=== PATIENT | male | born 1975 | race Caucasian/White ===

== ENCOUNTER → 2017-02-03 | Day surgery (SDC) | payer MEDICARE, MEDICAID ==
[~2017-02-03] VITALS: Ht 165.1 cm; Wt 124.3 kg
[~2017-02-03] MED LIST: ALDA25TA PO; AMIT50TA PO; GLIP5TAB8 PO; LIDOCAINE 2% INJ 100 MG/5 ML SDV (FOR ANES.) As Ordered ONE; LIDOCAINE 2% W/ EPINEPHRINE 1.7 ML DENTAL INJ As Ordered ONE; LIPI10TA PO; LOPR1TAB6 PO; LR 1,000 ML IV SCH; METF1000 PO; MIDAZOLAM INJ 2 MG/2 ML VIAL (J2250) As Ordered ONE; OMEP40CA2 PO; ONDANSETRON 4MG/2ML VIAL (J2405) As Ordered ONE; ONDANSETRON 4MG/2ML VIAL (J2405) IV PRN; PROA1AER INH; PROPOFOL 200 MG/20 ML VIAL As Ordered ONE; SUCCINYLCHOLINE 100 MG/5 ML SYRINGE (J0330) As Ordered ONE; fentaNYL 100 MCG/2 ML INJECTION (J3010) As Ordered ONE; fentaNYL 100 MCG/2 ML INJECTION (J3010) IV PRN
[2017-02-03 15:50] VITALS: BP 130/83
--- NOTE | 2017-02-03 22:02 | RO ---
DATE OF PROCEDURE: 02/03/2017 PREPROCEDURE DIAGNOSES: 1. Intellectual disability. 2. Grossly decayed and symptomatic teeth #2 and 4. POSTPROCEDURE DIAGNOSES: Status post the above. OPERATIVE PROCEDURE: Surgical extraction of teeth #2 and 4. SURGEON: Shar Smalls DMD, MD FIELD LABORATORY OPERATOR: ANESTHESIA: General endotracheal anesthesia via oral NEREYDA. SPECIMEN: None. INDICATIONS FOR SURGERY: Stevie is a pleasant 41-year-old male who was referred to my office with a history of symptomatic and grossly decayed teeth #2 and 4. My clinical examination was limited due to his uncooperativeness due to the intellectual disability. I was not able to perform a full complete oral examination therefore I discussed with the patient that from my limited exam and the radiographic x-rays these two teeth need to be removed and the best setting for this will be in the operating room setting. All the risks and benefits and alternatives were explained to the patient and informed consent was signed by the patient and is in the patient's chart. DESCRIPTION OF PROCEDURE: On February 03, 2017 the patient presented to the preop holding area where he was met by myself and the anesthesiologist. Any last minute questions were addressed at that point. The informed consent was updated as well as the history and physical. Stevie was then taken back to the operating room. He was laid supine on the operating room table. Ulnar nerve protectors were placed. Noninvasive cardiac monitors were applied. At that point, the patient underwent general anesthesia and he was intubated with an oral NEREYDA without any incident. At this point the patient was then prepped and draped in the usual sterile fashion. A time-out procedure was performed to identify the patient, the procedure and any other precautions. At this point, the patient was prepped and draped as I mentioned and the procedure started with the insertion of an oral throat pack in the patient's oropharynx followed by the administration of three carpules of 2% lidocaine with 1:100,000 epinephrine in the vestibule locally and in the palate as local infiltration. This was followed by the use of #15 blade to make an incision through teeth #2, 3 and 4. The flap was fully reflected, buccal bone was removed from sites 2 and 4. The teeth were then luxated and delivered with ease. The sockets were curetted and irrigated and the flaps were closed with #3-0 chromic sutures. Gauze hemostasis was achieved and observed. At this point the throat pack was removed and the patient was then extubated and awakened from general anesthesia and taken back to the post anesthesia care unit (PACU). ESTIMATED BLOOD LOSS: About 10 mL. DRAINS: No drains placed. COMPLICATIONS: None.
== END | disposition home or self-care (01) ==
LOC: M SDC 11:05
PROVIDERS: ATTEND Dentist
DX: K02.9 Dental caries, unspecified (principal); F79 Unspecified intellectual disabilities; E11.9 Type 2 diabetes mellitus without complications; Z91.040 Latex allergy status; Z79.899 Other long term (current) drug therapy; I10 Essential (primary) hypertension; E78.5 Hyperlipidemia, unspecified; K21.9 Gastro-esophageal reflux disease without esophagitis; G47.30 Sleep apnea, unspecified
CPT/HCPCS: 41899; 88300; J0330; J2405; J3010

== ENCOUNTER 2023-10-28 10:36 | Day surgery (SDC) | payer MEDICARE, MEDICAID ==
[~2023-10-28] VITALS: Ht 165.1 cm; Wt 111.4 kg
[~2023-10-28 10:36] MED LIST changes: +ALBU2.5V10 INH; -ALDA25TA PO; +AMIT25TA19 PO; +BASA100I SC; +ERGO500029 PO; +GLIP10TA6 PO; +GLIP5TAB17 PO; -GLIP5TAB8 PO; +IBUP1TAB7 PO; -LIDOCAINE 2% INJ 100 MG/5 ML SDV (FOR ANES.) As Ordered ONE; -LIDOCAINE 2% W/ EPINEPHRINE 1.7 ML DENTAL INJ As Ordered ONE; +LISI5TAB11 PO; -LR 1,000 ML IV SCH; -METF1000 PO; +METF10004 PO; +METO1TAB32 PO; -MIDAZOLAM INJ 2 MG/2 ML VIAL (J2250) As Ordered ONE; -OMEP40CA2 PO; +OMEP40CA4 PO; -ONDANSETRON 4MG/2ML VIAL (J2405) As Ordered ONE; -ONDANSETRON 4MG/2ML VIAL (J2405) IV PRN; -PROA1AER INH; +PROAAER10 INH; -PROPOFOL 200 MG/20 ML VIAL As Ordered ONE; +SPIR1TAB34 PO; -SUCCINYLCHOLINE 100 MG/5 ML SYRINGE (J0330) As Ordered ONE; +SUCR1TAB56 PO; +VENTAER INH; +VICT18IN SC; +XARE10TA PO; -fentaNYL 100 MCG/2 ML INJECTION (J3010) As Ordered ONE; -fentaNYL 100 MCG/2 ML INJECTION (J3010) IV PRN
[2023-10-28] MEDS ORDERED: LIDOCAINE 2% 100MG/5ML SDV (FOR ANES.) As Ordered ONE (10:49)
[2023-10-28] MEDS ORDERED: propofoL 200 MG/20 ML VIAL As Ordered ONE (10:49)
[2023-10-28] MEDS ORDERED: ROCURONIUM BROMIDE 50MG/5ML VIAL As Ordered ONE (10:49)
[2023-10-28] MEDS ORDERED: fentaNYL 250 MCG/5 ML INJECTION As Ordered ONE (10:49)
[2023-10-28] MEDS ORDERED: MIDAZOLAM INJ 2MG/2ML VIAL As Ordered ONE (10:49)
[2023-10-28] MEDS ORDERED: LR 1,000 ML IV SCH ×2 (11:00→13:00)
[2023-10-28] MEDS ORDERED: INSULIN LISPRO (NovoLOG) PER UNIT SC PRN ×2 (11:50→13:15)
[2023-10-28] MEDS ORDERED: LIDOCAINE W/EPINEPHRINE 1% 20ML VIAL As Ordered ONE (12:10)
[2023-10-28] MEDS ORDERED: ONDANSETRON 4MG 2ML VIAL IV PRN (13:00)
[2023-10-28] MEDS ORDERED: HYDROMORPHONE HCL 0.5 MG/ 0.5 ML SYRINGE IV PRN (13:00)
[2023-10-28] MEDS ORDERED: oxyCODONE 5MG TAB PO PRN (13:00)
[2023-10-28] MEDS ORDERED: fentaNYL 100 MCG/2 ML INJECTION IV PRN (13:00)
[2023-10-28] MEDS ORDERED: KETOROLAC 60MG 2ML VIAL As Ordered ONE (13:20)
[2023-10-28] MEDS ORDERED: METOCLOPRAMIDE INJ 10MG/2ML VIAL As Ordered ONE (13:20)
[2023-10-28] MEDS ORDERED: SUGAMMADEX SODIUM 500 MG/5 ML VIAL (BRIDION) As Ordered ONE (13:20)
[2023-10-28] MEDS ORDERED: ONDANSETRON 4MG 2ML VIAL As Ordered ONE (13:20)
[2023-10-28] MEDS ORDERED: ACETAMINOPHEN 1000MG 100ML IV BAG As Ordered ONE (13:22)
[2023-10-28 14:00] VITALS: BP 146/99; TEMP 97.3; O2SAT 96
== END 2023-10-28 14:15 | disposition home or self-care (01) ==
LOC: M SDC 10:36
PROVIDERS: ATTEND Dentist Oral and Maxillofacial Surgery
DX: K02.9 Dental caries, unspecified (principal); Z88.2 Allergy status to sulfonamides; Z91.040 Latex allergy status
CPT/HCPCS: 41899; 88300; J0131; J1815; J1885; J2250; J2405; J2765; J3010